=== PATIENT | male | born 1955 | race Caucasian/White ===

== ENCOUNTER 2020-02-06 07:07 | Outpatient (NON) | payer MEDICARE, SELFPAY ==
[2020-02-08 16:41] LABS: SARS-CoV-2 RNA PCR Positive
== END 2020-02-06 07:08 ==
PROVIDERS: PCP Family Medicine; Visit Provider Physician Assistant Medical
DX: U07.1 COVID-19 (principal)
CPT/HCPCS: 87635; C9803; U0003

== ENCOUNTER → 2020-09-10 00:04 | Outpatient (CLI) | payer MEDICARE, SELFPAY ==
[2020-09-10 16:57] LABS: SARS-CoV-2 RNA PCR Negative
== END ==
PROVIDERS: PCP Family Medicine; Visit Provider Internal Medicine Gastroenterology
DX: Z01.812 Encounter for preprocedural laboratory examination (principal); Z20.822 Contact with and (suspected) exposure to COVID-19
CPT/HCPCS: C9803; U0003; U0005

== ENCOUNTER 2020-09-13 01:37 | Day surgery (SDC) | payer MEDICARE, SELFPAY ==
[2020-08-31 09:54] VITALS: BMI 26.0
[2020-09-13 10:04] VITALS: BP 150/79; PULSE 92; RESP 20; TEMP 36; O2SAT 97; BMI 24.9
[2020-09-13] MEDS: LACTATED RINGERS 1,000 ML 150 ML IV CONT (10:13)
[2020-09-13 10:15] LABS: Glucose Point of Care 169 mg/dl (65-105)
--- NOTE | 2020-09-13 10:32 | WPDANESEPPF ---
Anes - Initial Pre Proc Eval Procedure: Operation Date: 09/13/20 12:00 Proposed Procedures p Screening Colonoscopy - Nasim Villarreal MD Date/Time: 09/13/20 10:32 Surgeon: Nasim Villarreal MD Pre Op Diagnosis: neoplasm screening Patient Data Age: 65 Gender: M Height: 1.75 m Weight: 76.5 kg Last Vital Signs Temp 96.8 F L 09/13/20 10:04 Pulse 92 09/13/20 10:04 Resp 20 09/13/20 10:04 BP 150/79 H 09/13/20 10:04 Pulse Ox 97 09/13/20 10:04 Allergies Allergy/AdvReac Type Severity Reaction Status Date / Time No Known Allergies Allergy Verified 09/13/20 10:03 Home Medications Medication Instructions Recorded Confirmed Type sildenafil 100 mg tablet 100 mg PO DAILY PRN #10 tablet 03/15/20 07/15/20 Rx empagliflozin 25 mg tablet 25 mg PO DAILY #90 tablet 06/07/20 08/31/20 Rx lisinopril 40 mg tablet See Rx Instructions .ROUTE 06/21/20 08/31/20 Rx .COMPLEX #90 tablet metoprolol succinate 25 mg See Rx Instructions .ROUTE 07/25/20 08/31/20 Rx tablet,extended release 24 hr .COMPLEX #90 tablet metformin 500 mg tablet,extended 2,000 mg PO DAILY #120 tablet 08/01/20 08/31/20 Rx release 24 hr glimepiride 2 mg tablet 2 mg PO QAM #30 tablet 08/25/20 08/31/20 Rx rosuvastatin 40 mg tablet 40 mg PO DAILY #30 tablet 08/25/20 08/31/20 Rx aspirin 81 mg PO BID 08/31/20 08/31/20 History omeprazole 20 mg PO DAILY 08/31/20 08/31/20 History Laboratory Tests 09/13/20 10:12 POC Capillary Glucose 169 mg/dl H mg/dl (65-105) Patient hx anesthesia problems: none Family hx anesthesia problems: none PMFSH Past Medical History Medical History (Updated 03/15/20 @ 10:04 by Иван Rayo MD) Arthritis of right knee Cataracts, both eyes Erectile dysfunction due to diabetes mellitus Essential hypertension Mixed hyperlipidemia Onychomycosis Screen for colon cancer Type 2 diabetes mellitus with hyperglycemia Family History Family History Grandparent Carcinoma of colon Father Family history of diabetes mellitus in first degree relative Family history of coronary artery disease Mother Family history of diabetes mellitus in first degree relative Social History Social History Years smoked: 40 Smoking status: Former smoker Alcohol intake: current Alcohol use details: Weekends Substance use: current Substance use type: marijuana Other substance usage details: Since age 15 Gender identity (if verbalized by the patient): Male Spiritual care concerns: No Anes - Eval Final PreProcedure Day of Procedure 09/13/20 10:32 Patient weight: normal Heart: regular rate and rhythm Lungs: clear to auscultation Airway: Mallampati scale class II Neurological: alert and oriented Last oral intake: >/= 8 hours ASA classification: III Emergent: no Anesthetic plan: proceed Anesthesia type and monitoring: general GIVS and standard monitoring Informed Consent: The patient's anesthetic plan and its attendant risks and benefits were discussed with the patient/family/POA. Questions were solicited and answers provided to the satisfaction of the patient/family/POA.
--- NOTE | 2020-09-13 10:50 | PM.HPGS ---
History of Present Illness History of Present Illness Consent: Risks, benefits, and alternatives have been discussed and questions answered. Patient agrees to proceed with procedure. Chief complaint: neoplasm screening Narrative: Mario Haskins is a 65 year old male here for first screening colonoscopy Review of Systems Constitutional: Constitutional: Denies headache(s) and Denies weakness Eyes: Eyes: Denies blurry vision ENT: Reports Normal hearing present, Denies headache(s) and Denies neck pain Cardiovascular: Cardiovascular: Denies chest pain and Denies dyspnea Respiratory: Respiratory: Denies dyspnea Gastrointestinal: Gastrointestinal: Reports no additional gastrointestinal complaints Genitourinary: Genitourinary: Denies dysuria Musculoskeletal: Musculoskeletal: Denies neck pain Integumentary/Breasts: Skin/Breast: Denies dry skin Neurologic: Reports Normal hearing present, Denies headache(s) and Denies weakness Psychiatric: Psychiatric: Denies anxiety Endocrine: Endocrine: Denies change in body appearance Hematologic/Lymphatic: Hematologic/Lymphatic: Denies easy bleeding Allergic/Immunologic: Allergic/Immunologic: Denies urticaria PMF Past Medical History Medical History (Updated 03/15/20 @ 10:04 by Иван Rayo MD) Arthritis of right knee Cataracts, both eyes Erectile dysfunction due to diabetes mellitus Essential hypertension Mixed hyperlipidemia Onychomycosis Screen for colon cancer Type 2 diabetes mellitus with hyperglycemia Family History Family History Grandparent Carcinoma of colon Father Family history of diabetes mellitus in first degree relative Family history of coronary artery disease Mother Family history of diabetes mellitus in first degree relative Social History Social History Years smoked: 40 Smoking status: Former smoker Alcohol intake: current Alcohol use details: Weekends Substance use: current Substance use type: marijuana Other substance usage details: Since age 15 Gender identity (if verbalized by the patient): Male Spiritual care concerns: No Meds Home Medications and Allergies Home Medications Medication Instructions Recorded Confirmed Type sildenafil 100 mg tablet 100 mg PO DAILY PRN #10 tablet 03/15/20 07/15/20 Rx empagliflozin 25 mg tablet 25 mg PO DAILY #90 tablet 06/07/20 08/31/20 Rx lisinopril 40 mg tablet See Rx Instructions .ROUTE 06/21/20 08/31/20 Rx .COMPLEX #90 tablet metoprolol succinate 25 mg See Rx Instructions .ROUTE 07/25/20 08/31/20 Rx tablet,extended release 24 hr .COMPLEX #90 tablet metformin 500 mg tablet,extended 2,000 mg PO DAILY #120 tablet 08/01/20 08/31/20 Rx release 24 hr glimepiride 2 mg tablet 2 mg PO QAM #30 tablet 08/25/20 08/31/20 Rx rosuvastatin 40 mg tablet 40 mg PO DAILY #30 tablet 08/25/20 08/31/20 Rx aspirin 81 mg PO BID 08/31/20 08/31/20 History omeprazole 20 mg PO DAILY 08/31/20 08/31/20 History Allergies Allergy/AdvReac Type Severity Reaction Status Date / Time No Known Allergies Allergy Verified 09/13/20 10:03 Vital Signs Vital Signs - 24 hr 09/13/20 10:04 Temperature 96.8 F L Pulse Rate 92 Respiratory Rate 20 Blood Pressure 150/79 H Pulse Oximetry 97 Exam Const: General: comfortable and no acute distress HENMT: General nose exam: Normal nares present Eyes: General: appearance normal, both eyes and all related structures Neck: Neck: no JVD Resp: Auscultation: clear to auscultation bilaterally Cardio: Rate: regular rate Rhythm: regular rhythm GI: Inspection: non-distended GI Palp: Yes Soft to palpation Skin: General skin exam: normal color Neuro: General: gait normal Speech: normal speech Extrem: General: normal to inspection Psych: Mental Status: mental status grossly normal Assessment and Plan Assessment and plan
[2020-09-13 11:22] VITALS: BP 120/72; PULSE 82; RESP 22; O2SAT 96
[2020-09-13 11:32] VITALS: BP 126/82; PULSE 85; RESP 23; O2SAT 97
[2020-09-13 11:42] VITALS: BP 133/85; PULSE 82; RESP 17; O2SAT 97
== END 2020-09-13 12:02 | disposition home or self-care (01) ==
PROVIDERS: PCP Family Medicine; Visit Provider Internal Medicine Gastroenterology
PROC: 0DJD8ZZ Inspection of Lower Intestinal Tract, Via Natural or Artificial Opening Endoscopic (ICD-10-PCS; CPT 45378; principal; 2020-09-13 12:00)
DX: Z12.11 Encounter for screening for malignant neoplasm of colon (principal); K63.5 Polyp of colon; D12.0 Benign neoplasm of cecum; D12.4 Benign neoplasm of descending colon; K64.8 Other hemorrhoids; E11.65 Type 2 diabetes mellitus with hyperglycemia; E78.5 Hyperlipidemia, unspecified; Z87.891 Personal history of nicotine dependence; F12.90 Cannabis use, unspecified, uncomplicated; Z79.82 Long term (current) use of aspirin; Z79.84 Long term (current) use of oral hypoglycemic drugs; I10 Essential (primary) hypertension
CPT/HCPCS: 45385; 45381; 45380; 82948; 88305; C9803; J2704; J7120; U0003; U0005

== ENCOUNTER 2022-03-21 09:10 | Outpatient (CLI) | payer MEDICARE, SELFPAY ==
--- NOTE | 2022-03-21 11:00 | NEURO_ITS ---
Impression: Patient reports a history of numbness in right digits I-III. # Mild bilateral Carpal Tunnel Syndrome, right worse than left. # Bilateral ulnar neuropathy with slowing across the elbow. # Normal needle/EMG exam. # Clinical correlation recommended. Motor Nerve Conduction Upper Extremities Median Nerve Conduction Velocity (m/sec) Terminal Latency (msec) Response Voltage(mV) Elbow-Wrist Wrist Elbow Wrist Right 48 4.1 1 1 Left 54 4.3 3 4 Ulnar Nerve Conduction Velocity (m/sec) Terminal Latency (msec) Response Voltage(mV) Above Elbow Below Elbow Wrist Above Elbow Below Elbow Wrist Right 38 45 2.8 5 5 7 Left 39 44 3.0 5 5 6 F-Wave Latency Median (ms) Ulnar (ms) Right 32.9 32.0 Left 32.8 32.5 Sensory Nerve Conduction Upper Extremities Median Nerve Stimulation Terminal Latency (msec) Wrist/Digit Response Voltage (uV) Wrist Right 8.4/7.5 10/28 Left 4.2/4.8 22/22 Ulnar Nerve Stimulation Terminal Latency (msec) Wrist/Digit Response Voltage (uV) Wrist Right 3.1 21 Left 3.1 11 Radial Nerve Terminal Latency (msec) Response Voltage(mV) Right 2.4 24 Left 2.7 17 Left Right Muscles Examined Fibrillation Fasciculation Scarcity Voltage Duration Left Right Left Right Left Right Left Right Left Right Deltoid Biceps X X Brachioradialis Triceps X X Pronator Teres X X Ext Indicis X X Ext Digitorum X X Abd Poll Brev X X 1st Dorsal Interosseus Paraspinals MTDD
== END 2022-03-21 09:11 | disposition home or self-care (01) ==
PROVIDERS: PCP Family Medicine; Visit Provider Family Medicine
DX: R20.0 Anesthesia of skin (principal); G56.23 Lesion of ulnar nerve, bilateral upper limbs; G56.03 Carpal tunnel syndrome, bilateral upper limbs
CPT/HCPCS: 95886; 95911

== ENCOUNTER 2023-07-29 10:58 | Outpatient (CLI) | payer MEDICARE, SELFPAY | END 2023-07-29 10:59 | disposition home or self-care (01) | LOC: ANHAUDIO 11:00 | PROVIDERS: PCP Family Medicine; Visit Provider Family Medicine | DX: H93.13 Tinnitus, bilateral (principal); H90.3 Sensorineural hearing loss, bilateral; H61.21 Impacted cerumen, right ear | CPT/HCPCS: 92557; 92567 ==

== ENCOUNTER 2024-12-21 01:18 | Day surgery (SDC) | payer MEDICARE, SELFPAY ==
[2024-12-07 13:08] VITALS: BMI 21.8
[2024-12-21 07:55] VITALS: BP 150/73; PULSE 99; RESP 20; TEMP 36.2; O2SAT 97; BMI 21.2
[2024-12-21] MEDS: LACTATED RINGERS 1,000 ML 150 ML IV CONT (08:08)
--- NOTE | 2024-12-21 08:08 | WPDANESEPPF ---
Anes - Initial Pre Proc Eval Procedure: Operation Date: 12/21/24 09:00 Proposed Procedures p Screening Colonoscopy - Nasim Villarreal MD Date/Time: 12/21/24 08:08 Surgeon: Nasim Villarreal MD Pre Op Diagnosis: screening,Personal history of colon polyps, Patient Data Age: 69 Gender: M Height: 1.75 m Weight: 65.1 kg Last Vital Signs Temp 36.2 C L 12/21/24 07:55 Pulse 99 12/21/24 07:55 Resp 20 12/21/24 07:55 BP 150/73 H 12/21/24 07:55 Pulse Ox 97 12/21/24 07:55 O2 Del Method Room Air 12/21/24 07:55 Allergies Allergy/AdvReac Type Severity Reaction Status Date / Time No Known Allergies Allergy Verified 12/21/24 07:51 Home Medications ?Medication ?Instructions ?Recorded ?Confirmed ?Type aspirin 81 mg tablet 81 mg PO BID 08/31/20 12/07/24 History glimepiride 2 mg tablet See Rx Instructions .Route 04/22/24 12/21/24 Rx .COMPLEX #90 tabs rosuvastatin 40 mg tablet (Crestor) 40 mg PO DAILY #90 tabs 04/24/24 12/21/24 Rx metformin 500 mg tablet,extended See Rx Instructions .Route 07/05/24 12/21/24 Rx release 24 hr .COMPLEX #360 tabs lisinopril 40 mg tablet 40 mg PO DAILY #90 tabs 07/12/24 12/21/24 Rx metoprolol succinate 25 mg See Rx Instructions .Route 07/12/24 12/21/24 Rx tablet,extended release 24 hr .COMPLEX #90 tabs testosterone (AndroGel) 3 pump topical DAILY #150 grams 07/12/24 12/21/24 Rx omeprazole 20 mg capsule,delayed See Rx Instructions .Route 07/24/24 12/21/24 Rx release .COMPLEX #90 caps empagliflozin 25 mg tablet 25 mg PO DAILY #90 tabs 10/09/24 12/21/24 Rx (Jardiance) Patient hx anesthesia problems: none Family hx anesthesia problems: none Results Review: All pre-operative results and documents have been reviewed as part of the pre-operative evaluation. [facility] Past Medical History Medical History Diabetic retinopathy Diabetic neuropathy Erectile dysfunction Numbness of right hand Testicular hypofunction Diabetes mellitus Screening for prostate cancer Erectile dysfunction due to diabetes mellitus Onychomycosis Screen for colon cancer Cataracts, both eyes Arthritis of right knee Essential hypertension Mixed hyperlipidemia Type 2 diabetes mellitus with hyperglycemia Surgical History Surgical History History of surgery on lower extremity bilateral femur surgery Family History Family History Grandparent Carcinoma of colon Father Family history of diabetes mellitus in first degree relative Family history of coronary artery disease Mother Diabetes mellitus Family history of diabetes mellitus in first degree relative Hypertension Sibling Breast cancer Social History Social History Years smoked: 40 Smoking status: Former smoker Tobacco type: cigarettes Second hand tobacco smoke exposure: No Alcohol intake: current Alcohol use details: Weekends Substance use: current Substance use type: marijuana Other substance usage details: Since age 15 Do You Feel Safe in your Home?: Yes Lack of Transportation: No Lack of Food: Never True Current Housing: I Have Housing Concerned About Future Housing: No Difficulty Paying Gas/Electric Bills: No Difficulty Paying for Meds: No Currently Unemployed: YES Education: Associate Degree Difficulty w/ Childcare or Family Care: No Living arrangements: with family Additional living arrangements comments: fiance Occupation/Education: occupation 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 Gender identity (if verbalized by the patient): Male Spiritual care concerns: No Anes - Eval Final PreProcedure Day of Procedure 12/21/24 08:08 Patient weight: normal Heart: regular rate and rhythm Lungs: clear to auscultation and normal air movement Airway: Mallampati scale class II Neurological: alert and oriented Last oral intake: >/= 8 hours ASA classification: III Emergent: no Anesthetic plan: proceed Anesthesia type and monitoring: general GIVS and standard monitoring Results Review: All pre-operative results and documents have been reviewed as part of the pre-operative evaluation. Informed Consent: The patient's anesthetic plan and its attendant risks and benefits were discussed with the patient/family/POA. Questions were solicited and answers provided to the satisfaction of the patient/family/POA.
--- NOTE | 2024-12-21 09:07 | PM.HPGS ---
History of Present Illness History of Present Illness Consent: Risks, benefits, and alternatives have been discussed and questions answered. Patient agrees to proceed with procedure. Chief complaint: screening,Personal history of colon polyps, Narrative: Mario Haskins is a 69 year old male with colon polyp in 2020 Review of Systems Review of Systems: All systems reviewed & are unremarkable except as noted in HPI and below PMFSH Past Medical History Medical History (Updated 12/21/24 @ 09:08 by Nasim Villarreal MD) Colon polyp Diabetic retinopathy Diabetic neuropathy Erectile dysfunction Numbness of right hand Testicular hypofunction Diabetes mellitus Screening for prostate cancer Erectile dysfunction due to diabetes mellitus Onychomycosis Screen for colon cancer Cataracts, both eyes Arthritis of right knee Essential hypertension Mixed hyperlipidemia Type 2 diabetes mellitus with hyperglycemia Surgical History Surgical History History of surgery on lower extremity bilateral femur surgery Family History Family History Grandparent Carcinoma of colon Father Family history of diabetes mellitus in first degree relative Family history of coronary artery disease Mother Diabetes mellitus Family history of diabetes mellitus in first degree relative Hypertension Sibling Breast cancer Social History Social History Years smoked: 40 Smoking status: Former smoker Tobacco type: cigarettes Second hand tobacco smoke exposure: No Alcohol intake: current Alcohol use details: Weekends Substance use: current Substance use type: marijuana Other substance usage details: Since age 15 Do You Feel Safe in your Home?: Yes Lack of Transportation: No Lack of Food: Never True Current Housing: I Have Housing Concerned About Future Housing: No Difficulty Paying Gas/Electric Bills: No Difficulty Paying for Meds: No Currently Unemployed: YES Education: Associate Degree Difficulty w/ Childcare or Family Care: No Living arrangements: with family Additional living arrangements comments: maxi Occupation/Education: occupation Additional occupation/education comments: [employer]-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 [employer]. Gender identity (if verbalized by the patient): Male Spiritual care concerns: No Meds Home Medications and Allergies Home Medications ?Medication ?Instructions ?Recorded ?Confirmed ?Type aspirin 81 mg tablet 81 mg PO BID 08/31/20 12/07/24 History glimepiride 2 mg tablet See Rx Instructions .Route 04/22/24 12/21/24 Rx .COMPLEX #90 tabs rosuvastatin 40 mg tablet (Crestor) 40 mg PO DAILY #90 tabs 04/24/24 12/21/24 Rx metformin 500 mg tablet,extended See Rx Instructions .Route 07/05/24 12/21/24 Rx release 24 hr .COMPLEX #360 tabs lisinopril 40 mg tablet 40 mg PO DAILY #90 tabs 07/12/24 12/21/24 Rx metoprolol succinate 25 mg See Rx Instructions .Route 07/12/24 12/21/24 Rx tablet,extended release 24 hr .COMPLEX #90 tabs testosterone (AndroGel) 3 pump topical DAILY #150 grams 07/12/24 12/21/24 Rx omeprazole 20 mg capsule,delayed See Rx Instructions .Route 07/24/24 12/21/24 Rx release .COMPLEX #90 caps empagliflozin 25 mg tablet 25 mg PO DAILY #90 tabs 10/09/24 12/21/24 Rx (Jardiance) Allergies Allergy/AdvReac Type Severity Reaction Status Date / Time No Known Allergies Allergy Verified 12/21/24 07:51 Vital Signs Vital Signs - 24 hr 12/21/24 07:55 Temperature 97.1 F L Pulse Rate 99 Respiratory Rate 20 Blood Pressure 150/73 H Pulse Oximetry 97 Oxygen Delivery Room Air Exam Const: General: comfortable and no acute distress HENMT: Face/Nose/Sinus: Normal nares present Eyes: General: appearance normal, both eyes and all related structures Resp: Auscultation: clear to auscultation bilaterally Cardio: Rate: regular rate Rhythm: regular rhythm GI: Inspection: non-distended GI Palp: Yes Soft to palpation Skin: General skin exam: normal color Extrem: General: normal to inspection Psych: Mental Status: mental status grossly normal Assessment and Plan Assessment and plan (1) Colon polyp: Code(s): K63.5 - Polyp of colon Status: Acute Assessment and Plan: colonoscopy
--- NOTE | 2024-12-21 09:20 | S_PTH ---
PATIENT: Mario Haskins LOC: [facility]#:[id number] AGE/SX: 69/M ROOM: RE12/21/[address]: Nasim Villarreal MD : 1955 BED: DIS: 12/21/2024 SPEC #: [id number] RECD: 12/21/24 10:41 STATUS: KEVIN REBecky #: [id number] MADYSON: 12/21/24 09:[address]: Nasim Villarreal DEPT: [facility] Surgical RECD BY: Loly Leiva ENTERED: 12/21/24 10:42 SP TYPE: Surgical OTHR DR: Иван Rayo MD Tissues: A - Colon Polypectomy Procedures: Hematoxylin and Eosin Stain Gross and Microscopic Level 4
[2024-12-21 09:22] VITALS: BP 106/64; PULSE 81; RESP 13; O2SAT 99
[2024-12-21 09:32] VITALS: BP 101/68; PULSE 82; RESP 17; O2SAT 97
[2024-12-21 09:42] VITALS: BP 118/69; PULSE 81; RESP 20; O2SAT 96
== END 2024-12-21 09:51 | disposition home or self-care (01) ==
PROVIDERS: PCP Family Medicine; Referring Provider Internal Medicine Gastroenterology; Visit Provider Internal Medicine Gastroenterology
PROC: 0DJD8ZZ Inspection of Lower Intestinal Tract, Via Natural or Artificial Opening Endoscopic (ICD-10-PCS; CPT 45378; principal; 2024-12-21 09:00)
DX: Z12.11 Encounter for screening for malignant neoplasm of colon (principal); D12.3 Benign neoplasm of transverse colon; I10 Essential (primary) hypertension; N52.9 Male erectile dysfunction, unspecified; E29.1 Testicular hypofunction; M17.11 Unilateral primary osteoarthritis, right knee; E11.65 Type 2 diabetes mellitus with hyperglycemia; E11.319 Type 2 diabetes mellitus with unspecified diabetic retinopathy without macular edema; E11.40 Type 2 diabetes mellitus with diabetic neuropathy, unspecified; F12.90 Cannabis use, unspecified, uncomplicated; Z79.82 Long term (current) use of aspirin; Z79.84 Long term (current) use of oral hypoglycemic drugs; Z98.890 Other specified postprocedural states; Z87.891 Personal history of nicotine dependence; Z80.0 Family history of malignant neoplasm of digestive organs; Z80.3 Family history of malignant neoplasm of breast; Z82.49 Family history of ischemic heart disease and other diseases of the circulatory system
CPT/HCPCS: 45385; 82948; 88305; J2003; J2704; J7120